=== PATIENT | male | born 1965 | race Caucasian/White ===

== ENCOUNTER 2016-06-05 19:49 | Emergency (ER) | payer OTHER ==
[~2016-06-05] VITALS: Ht 188 cm; Wt 88.0 kg
[2016-06-05 20:24] VITALS: BP 144/76; PULSE 88; RESP 20; TEMP 98; O2SAT 98
[2016-06-05] MEDS ORDERED: HYDR12.57 PO (20:24)
[2016-06-05] MEDS ORDERED: ZETI10TA5 PO (20:24)
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
[2016-06-05] MEDS ORDERED: MORPHINE SULFATE 8 MG/ML INJ IM ONE (20:45)
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
[2016-06-05] MEDS ORDERED: SODIUM CHLORIDE 0.9% FLUSH 10 ML FLUSH IV FLUSH PRN (21:30)
[2016-06-05 22:23] LABS: AUTOMATED NEUTROPHIL # 10.3 TH/MM3 (1.8-7.7); BASOPHIL # 0.1 TH/MM3 (0-0.2); BASOPHIL % 0.5 % (0.0-2.0); EOSINOPHIL # 0.3 TH/MM3 (0-0.4); EOSINOPHIL % 2.5 % (0.0-4.0); HEMATOCRIT 42.9 % (39.0-51.0); HEMO FLAGS DIFF FINAL; LYMPH % 14.9 % (9.0-44.0); LYMPHOCYTE # 2.1 TH/MM3 (1.0-4.8); MEAN CELL VOLUME 89.1 FL (80.0-100.0); MEAN CORPUSCULAR HEMOGLOBIN 30.7 PG (27.0-34.0); MEAN CORPUSCULAR HGB CONC 34.5 % (32.0-36.0); MONO % 7.6 % (0.0-8.0); NEUT % 74.5 % (16.0-70.0); PLATELET COUNT 290 TH/MM3 (150-450); RED BLOOD COUNT 4.82 MIL/MM3 (4.50-5.90); RED CELL DISTRIBUTION WIDTH 12.8 % (11.6-17.2); WHITE BLOOD COUNT 13.8 TH/MM3 (4.0-11.0)
[2016-06-05] MEDS ORDERED: IOHEXOL 350 MG/ML 10 ML VIAL (for RAD DIAG) IV ONE (22:30)
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
[2016-06-05 22:45] LABS: APTT (PATIENT) 26.8 SEC (24.3-30.1); INTERNATIONAL NORMALIZED RATIO 0.9 RATIO; PROTHROMBIN TIME - PATIENT 9.5 SEC (9.8-11.6)
[2016-06-05 22:52] LABS: BICARBONATE 26.1 MEQ/L (21.0-32.0)
[2016-06-05 22:56] LABS: POTASSIUM 3.9 MEQ/L (3.5-5.1)
[2016-06-05] MEDS ORDERED: PERC5TAB12 PO (23:10)
[2016-06-05 23:13] VITALS: RESP 20
== END 2016-06-05 23:36 | disposition home or self-care (01) ==
LOC: NEPD 19:49
DX: S42.114A Nondisplaced fracture of body of scapula, right shoulder, initial encounter for closed fracture (principal); V94.9XXA Unspecified water transport accident, initial encounter
CPT/HCPCS: 71010; 71260; 73010; 73030; 80048; 85025; 85610; 85730; 96372; 99284; J2270; Q9967